=== PATIENT | male | born 1955 | race Caucasian/White ===

== ENCOUNTER 2019-12-03 23:53 | Emergency (ER) | payer BC ==
--- NOTE | 2019-12-04 01:11 | EDM.PDOC ---
ED HPI GENERAL MEDICAL PROBLEM - General Chief Complaint: Drug or Alcohol Abuse Stated Complaint: [facility] Time Seen by Provider: 12/04/19 00:55 Source of Information: Reports: RN Notes Reviewed History Limitations: Reports: Altered Mental Status - History of Present Illness INITIAL COMMENTS - FREE TEXT/NARRATIVE: Mr. Em is a 64-year-old gentleman brought to the ED by EMS after they were called to [employer] for a patient being lethargic, possibly intoxicated. EMS reportedly found the patient sitting on the curb outside. He needed assistance to get onto the cot, although they did not notice any focal neurologic deficits. It is unclear what his vital signs or Accu-Chek might have been in the field. A small abrasion was noted to his left face, however, there is no report of anyone witnessing the patient falling. Here in the ED, the patient's initial BP is found to be mildly elevated at 144/85, otherwise, he is hemodynamically stable, afebrile, saturating 93% on room air. Accu-Chek at triage was 160. The patient will open his eyes to verbal stimuli, but is not answering any questions. Medical records indicate that he has not been here before, therefore his past medical, surgical, and social history are unknown, as is his review of systems. - Related Data Allergies Allergy/AdvReac Type Severity Reaction Status Date / Time No Known Allergies Allergy Verified 12/04/19 00:48 Home Meds: Home Meds . [No Known Home Meds] 12/04/19 [History] Past Medical History Cardiovascular History: Reports: High Cholesterol, Hypertension Endocrine/Metabolic History: Reports: Obesity/BMI 30+ Social & Family History - Tobacco Use Smoking Status *Q: Never Smoker - Alcohol Use Alcohol Use History: Yes Alcohol Use Frequency: Binges (weekly) - Recreational Drug Use Recreational Drug Use: No - Living Situation & Occupation Living situation: Reports: , with Spouse, with Family (Grandson) Occupation: Employed (manager [employer]) ED ROS GENERAL - Review of Systems Review Of Systems: Comprehensive ROS is negative, except as noted in HPI. - Physical Exam Exam: See Below Exam Limited By: No Limitations General Appearance: WD/WN, No Apparent Distress, Lethargic Eye Exam: Bilateral Eye: Abnormal EOM (Unable to follow my fiinger with his eyes despite several attempts. He could only follow my finger by moving his head.), PERRL (3 mm bilaterally) Ears: Normal External Exam, Normal Canal, Hearing Grossly Normal, Normal TMs Nose: Normal Inspection, Normal Mucosa, No Blood Throat/Mouth: Normal Inspection, Normal Lips, Normal Teeth, Normal Gums, Normal Oropharynx, Normal Voice, No Airway Compromise Head Exam: Normocephalic, Other (Small abrasion to the left yazidi) Neck: Normal Inspection, Supple, Non-Tender, Full Range of Motion. No: Lymphadenopathy (L), Lymphadenopathy (R) Respiratory/Chest: No Respiratory Distress, Lungs Clear, Normal Breath Sounds, No Accessory Muscle Use Cardiovascular: Normal Peripheral Pulses, No Edema, No Gallop, No JVD, No Murmur, No Rub, Irregularly Irregular GI/Abdominal: Normal Bowel Sounds, Soft, Non-Tender, No Organomegaly, No Distention, No Abnormal Bruit, No Mass Neuro Exam (Abbreviated): Other (Other than the inability to follow my finger with his eyes, no focal or lateralizing deficits were found. Unable to perform hand flip, bilaterally, finger-nose, bilaterally, or heel-wise, bilaterally.) Back Exam: Normal Inspection, Full Range of Motion, NT Extremities: Normal Range of Motion, No Pedal Edema, Normal Capillary Refill, Other (2 small abrasions to the left knee) Skin Exam: Warm, Dry, Intact, Normal Color, No Rash EKG INTERPRETATION EKG Date: 12/03/19 Time: 23:54 Rhythm: NSR Rate (Beats/Min): 97 [place]: Normal P-Wave: Present (1st degree AVB) QRS: Normal ST-T: Normal QT: Prolonged (QTc 513 ms) Comparison: NA - No Prior EKG Course - Vital Signs Last Recorded V/S: Last Vital Signs Temp 36.5 C 12/03/19 23:57 Pulse 80 12/04/19 03:00 Resp 16 12/04/19 03:00 BP 144/85 H 12/03/19 23:57 Pulse Ox 98 12/04/19 03:00 - Orders/Labs/Meds Orders: Active Orders 24 hr Category Date Time Status Head wo Cont [CT] Stat Exams 12/04/19 00:58 Taken Labs: Laboratory Tests 12/04/19 12/04/19 12/04/19 Range/Units 00:10 00:31 00:31 WBC 7.26 (4.23-9.07) K/mm3 RBC 5.02 (4.63-6.08) M/mm3 Hgb 14.2 (13.7-17.5) gm/dl Hct 42.3 (40.1-51.0) % MCV 84.3 (79.0-92.2) fl MCH 28.3 (25.7-32.2) pg MCHC 33.6 (32.2-35.5) g/dl RDW Std Deviation 41.5 (35.1-43.9) fL Plt Count 213 (163-337) K/mm3 MPV 8.9 L (9.4-12.3) fl Neut % (Auto) 43.2 (34.0-67.9) % Lymph % (Auto) 43.7 (21.8-53.1) % Jerauld % (Auto) 10.2 (5.3-12.2) % Eos % (Auto) 1.9 (0.8-7.0) Baso % (Auto) 0.6 (0.1-1.2) % Neut # (Auto) 3.14 (1.78-5.38) K/mm3 Lymph # (Auto) 3.17 (1.32-3.57) K/mm3 J[place]uld # (Auto) 0.74 (0.30-0.82) K/mm3 Eos # (Auto) 0.14 (0.04-0.54) K/mm3 Baso # (Auto) 0.04 (0.01-0.08) K/mm3 PT (9.7-11.7) SECONDS INR APTT (22-31) SECONDS Sodium 139 (136-145) mEq/L Potassium 3.8 (3.5-5.1) mEq/L Chloride 102 (98-107) mEq/L Carbon Dioxide 22 (21-32) mEq/L Anion Gap 18.8 H (5-15) BUN 11 (7-18) mg/dL Creatinine 1.0 (0.7-1.3) mg/dL Est Cr Clr Drug Dosing TNP Estimated GFR (MDRD) > 60 (>60) mL/min BUN/Creatinine Ratio 11.0 L (14-18) Glucose 158 H (80-115) mg/dL Calcium 8.3 L (8.5-10.1) mg/dL Total Bilirubin 0.4 (0.2-1.0) mg/dL AST 29 (15-37) U/L ALT 54 (16-63) U/L Alkaline Phosphatase 70 (46-116) U/L Total Protein 7.5 (6.4-8.2) g/dl Albumin 4.1 (3.4-5.0) g/dl Globulin 3.4 gm/dL Albumin/Globulin Ratio 1.2 (1-2) Urine Opiates Screen Negative (BTDFQW=380) Ur Buprenorphine Scrn Negative (CUTOFF=10) Ur Oxycodone Screen Negative (GAP1AC=871) Urine Methadone Screen Negative (YTR5ND=766) Ur Propoxyphene Screen Negative (ZQPKFG=377) Ur Barbiturates Screen Negative (XMXPHL=691) Ur Tricyclics Screen Negative (FJCBHC=364) Ur Phencyclidine Scrn Negative (CUTOFF=25) Ur Amphetamine Screen Negative (XRAXXM=221) U Methamphetamines Scrn Negative (XDNULS=080) U Benzodiazepines Scrn Negative (JILMLM=188) U Cocaine Metab Screen Negative (AIZVQC=633) U Marijuana (THC) Screen Negative (CUTOFF=50) Ethyl Alcohol 0.36 (0.00) gm% SARS CoV-2 RNA Rapid MARVIN (NEGATIVE) 12/04/19 12/04/19 Range/Units 00:59 01:31 WBC (4.23-9.07) K/mm3 RBC (4.63-6.08) M/mm3 Hgb (13.7-17.5) gm/dl Hct (40.1-51.0) % MCV (79.0-92.2) fl MCH (25.7-32.2) pg MCHC (32.2-35.5) g/dl RDW Std Deviation (35.1-43.9) fL Plt Count (163-337) K/mm3 MPV (9.4-12.3) fl Neut % (Auto) (34.0-67.9) % Lymph % (Auto) (21.8-53.1) % Jerauld % (Auto) (5.3-12.2) % Eos % (Auto) (0.8-7.0) Baso % (Auto) (0.1-1.2) % Neut # (Auto) (1.78-5.38) K/mm3 Lymph # (Auto) (1.32-3.57) K/mm3 Jerauld # (Auto) (0.30-0.82) K/mm3 Eos # (Auto) (0.04-0.54) K/mm3 Baso # (Auto) (0.01-0.08) K/mm3 PT 11.3 (9.7-11.7) SECONDS INR 1.06 APTT 30 (22-31) SECONDS Sodium (136-145) mEq/L Potassium (3.5-5.1) mEq/L Chloride (98-107) mEq/L Carbon Dioxide (21-32) mEq/L Anion Gap (5-15) BUN (7-18) mg/dL Creatinine (0.7-1.3) mg/dL Est Cr Clr Drug Dosing Estimated GFR (MDRD) (>60) mL/min BUN/Creatinine Ratio (14-18) Glucose (80-115) mg/dL Calcium (8.5-10.1) mg/dL Total Bilirubin (0.2-1.0) mg/dL AST (15-37) U/L ALT (16-63) U/L Alkaline Phosphatase (46-116) U/L Total Protein (6.4-8.2) g/dl Albumin (3.4-5.0) g/dl Globulin gm/dL Albumin/Globulin Ratio (1-2) Urine Opiates Screen (PWZKLY=248) Ur Buprenorphine Scrn (CUTOFF=10) Ur Oxycodone Screen (FQU2GC=190) Urine Methadone Screen (MJW4KT=136) Ur Propoxyphene Screen (KNKLGI=669) Ur Barbiturates Screen (IIZMJA=753) Ur Tricyclics Screen (VHALPZ=813) Ur Phencyclidine Scrn (CUTOFF=25) Ur Amphetamine Screen (BAGKGD=897) U Methamphetamines Scrn (FSMZVH=610) U Benzodiazepines Scrn (RJHTAE=432) U Cocaine Metab Screen (FTBDMU=104) U Marijuana (THC) Screen (CUTOFF=50) Ethyl Alcohol (0.00) gm% SARS CoV-2 RNA Rapid MARVIN Negative (NEGATIVE) Meds: Medications Discontinued Medications Generic Name Dose Route Start Last Admin Trade Name Freq PRN Reason Stop Dose Admin Sodium Chloride 1,000 mls @ 100 mls/hr 12/04/19 02:30 Normal Saline IV ASDIRECTED [facility] - Re-Assessments/Exams Free Text/Narrative Re-Assessment/Exam: 12/04/19 01:05 As above, EMS was called to [facility] [employer] for the patient being lethargic. Initial concern was that he was intoxicated. EMS found him sitting on a curb outside. I do not know what his vitals were for EMS or if they checked an Accu-Chek, however, here in the ED, he is found to be hemodynamically stable, afebrile, saturating 93% on room air. An Accu-Chek here in the ED was 160. On examination, the patient is lethargic but arousable to verbal stimuli. He is cooperative with the neurologic exam, although had some difficulty due to confusion. No focal neurologic deficits were found. A small abrasion to his left yazidi, +2 small abrasions to his left knee are noted on physical exam. When asked how much he has had to drink tonight, he responded "a lot". An ECG obtained at triage found the patient to be in a normal sinus rhythm with first-degree AV block, however, the computer interprets it as rate controlled atrial fibrillation. I disagree, since the QRS complexes march out perfectly, and P waves are clearly seen. Unfortunately, because he has never been here before, we do not have any prior records to compare, and the patient, while cooperative with the neurologic exam, is unable to provide any meaningful history. A CBC obtained at triage is completely unremarkable, as is a urine drug screen obtained at triage. Still pending are a CMP and EtOH level. I have ordered stat CT of the head without contrast, coags, and a rapid swab for the SARS-CoV-2 virus. I am anticipating that his alcohol level will return significantly elevated. If not, and the CT of his head is unremarkable, I will need to seek transfer to an outside facility for a stat MRI, as my main concern would then be for a brainstem infarct. I am aware, however, that there are no beds available in [place], and that beds are very tight or even nonexistent elsewhere in the [facility]. We will cross that bridge if we come to it. 12/04/19 01:25 The patient's CMP is remarkable for an anion gap modestly elevated at 18.8, but with a bicarbonate normal at 22. His blood glucose is elevated at 158, with the remainder of his CMP being unremarkable. His EtOH level is significantly elevated at 0.36. 12/04/19 01:40 CT of the head without contrast is read by Sanjana as: 1. Minimal atrophy. No acute intracranial abnormality. The patient's coags are within normal limits. The patient's rapid test for the SARS-CoV-2 virus is still pending. 12/04/19 02:24 The patient's rapid swab for the SARS-CoV-2 virus has returned negative. The plan will be to keep the patient in the ED overnight in order to sober up, with a discharge in the morning. 12/04/19 02:44 Notified by Rachelle FALCON that the patient is up, went to the bathroom, and would like to go home. He told her that he has money for cab. 12/04/19 03:00 I went and talked to the patient. He is dressed and walking around. He is slurring his speech, but was able to give me a full medical, surgical, and social history. He is unable to say how much she had to drink tonight other than "a bunch". He appears to drink heavily about once a week. He is visiting this area from [place], [place]. He confirmed that he would like to go home by cab. I will discharge him. Departure - Departure Time of Disposition: 03:03 Disposition: Home, Self-Care 01 Condition: Good Clinical Impression: Alcohol intoxication, Alcohol consumption binge drinking - Discharge Information *PRESCRIPTION DRUG MONITORING PROGRAM REVIEWED*: Not Applicable *COPY OF PRESCRIPTION DRUG MONITORING REPORT IN PATIENT ROSA: Not Applicable Forms: ED Department Discharge Additional Instructions: You were seen in the emergency room after paramedics were called [employer] due to your being lethargic. Work-up in the ER included blood work, a urine drug screen, a CT scan of your head, an ECG, and a swab for the SARS-CoV-2 virus. Your work-up found your alcohol level to be significantly elevated at 0.36. For reference, that is 4.5 times the upper legal limit for driving. Your blood sugar was found to be modestly elevated at 158, indicating that you may have prediabetes or diabetes. The remainder of your work-up was unremarkable, including a negative swab for the SARS-CoV-2 virus. We recommend that you stay adequately hydrated and abstain from drinking alcohol. If you have difficulty doing that, we recommend that you seek professional counseling. If any other problems, please do not hesitate to return to the ER. Sepsis Event Note (ED) - Evaluation Sepsis Screening Result: No Definite Risk - Focused Exam Vital Signs: Vital Signs Temp Pulse Resp BP Pulse Ox 12/04/19 03:00 80 16 98 12/03/19 23:57 36.5 C 97 18 144/85 H 93 L - My Orders Last 24 Hours: My Active Orders 12/04/19 00:58 Head wo Cont [CT] Stat - Assessment/Plan Last 24 Hours: My Active Orders 12/04/19 00:58 Head wo Cont [CT] Stat
[2019-12-04] MEDS ORDERED: Sodium Chloride 0.9% 1,000 ML IV SCH (02:30)
--- NOTE | 2019-12-04 06:22 | CT ---
Head CT Technique: Multiple axial sections through the brain were obtained. Intravenous contrast was not utilized. Comparison: No prior intracranial imaging is available. Findings: Ventricles along with basal cisterns and sulci over the convexities are mildly prominent. No abnormal parenchymal densities are seen. No evidence of intracranial hemorrhage. No midline shift or mass effect is seen. Bone window settings were reviewed. No acute calvarial finding is appreciated. Visualized mastoid sinuses show nothing acute. Mild mucosal thickening is noted within the left ethmoid sinus which shows nothing acute. Impression: 1. Mild generalized atrophy. 2. Minimal sinus finding most likely chronic. 3. No acute intracranial abnormality is appreciated. Diagnostic code #2 I agree with preliminary report issued by [facility] ([facility] preliminary report dictated on 12/04/19, 2:26 AM Central Daylight Time) Study was dictated in MDT
== END 2019-12-04 03:06 | disposition home or self-care (01) ==
LOC: JD.ED 23:53
DX: F10.129 Alcohol abuse with intoxication, unspecified (principal); S00.81XA Abrasion of other part of head, initial encounter; S80.212A Abrasion, left knee, initial encounter; I10 Essential (primary) hypertension; E66.9 Obesity, unspecified; Z20.828 Contact with and (suspected) exposure to other viral communicable diseases; X58.XXXA Exposure to other specified factors, initial encounter
CPT/HCPCS: 36415; 70450; 70450-26; 80053; 80306; 80307; 85025; 85610; 85730; 93005; 93010; 99283; 99285-25; U0002